=== PATIENT | male | born 1940 | race Caucasian/White ===

== ENCOUNTER 2019-07-28 15:21 | Inpatient (IN) | payer MEDICARE, OTHER ==
[~2019-07-28] VITALS: Ht 182.9 cm; Wt 104.3 kg
[2019-07-28 15:55] LABS: BASOPHILS ABSOLUTE AUTO 0.03 K/mm3 (0.00-0.23); BASOPHILS PERCENT AUTO 0 % (0-2); EOSINOPHILS ABSOLUTE AUTO 0.01 K/mm3 (0.00-0.68); EOSINOPHILS PERCENT AUTO 0 % (0-6); Hematocrit 47.7 % (37.0-53.0); Hemoglobin 14.8 g/dL (13.5-17.5); IMMATURE GRAN ABSOLUTE AUTO 0.03 K/mm3 (0.00-0.10); IMMATURE GRAN PERCENT AUTO 0 % (0-1); LYMPHOCYTES ABSOLUTE AUTO 1.49 K/mm3 (0.84-5.20); LYMPHOCYTES PERCENT AUTO 16 % (21-46); MONOCYTES ABSOLUTE AUTO 1.17 K/mm3 (0.16-1.47); MONOCYTES PERCENT AUTO 12 % (4-13); Mean Corpuscular HGB 30.9 pg (26.0-34.0); Mean Corpuscular Volume 100 fL (80-100); Mean Platelet Volume 11.9 fL (9.1-12.4); NEUTROPHILS ABSOLUTE AUTO 6.85 K/mm3 (1.96-9.15); NEUTROPHILS PERCENT AUTO 72 % (41-73); Platelet Count 212 K/mm3 (150-400); RDW Coefficient Variation 12.3 % (11.7-14.2); RDW Standard Deviation 45.8 fL (35.1-46.3); Red Blood Cell Count 4.79 M/mm3 (4.30-5.90); White Blood Cell Count 9.58 K/mm3 (4.00-11.30)
[2019-07-28 16:23] LABS: Alanine Aminotransfer (ALT/SGP 32 U/L (12-78); Albumin/Globulin Ratio 1.1 (0.8-1.8); Alk Phos 92 U/L (50-136); Anion Gap -1 mmol/L (6-16); Aspartate Aminotrans (AST/SGOT 27 U/L (12-37); Bilirubin, Total 0.3 mg/dL (0.1-1.0); Blood Urea Nitrogen 23 mg/dL (8-24); Bun/Creatinine Ratio 29.4 (12.0-20.0); CO2, Blood 38 mmol/L (21-32); Calcium, Blood 8.9 mg/dL (8.5-10.1); Chloride, Blood 97 mmol/L (98-108); Creatinine, Blood 0.78 mg/dL (0.60-1.20); Globulin, Blood 3.7 g/dL (2.2-4.0); Glomerular Filtration Rate >60 (60-); Glucose, Blood 191 mg/dL (70-99); Potassium, Blood 4.3 mmol/L (3.5-5.5); Sodium, Blood 134 mmol/L (136-145); Total Protein, Blood 7.7 g/dL (6.4-8.2); Troponin I <0.015 ng/mL (0.000-0.040)
[2019-07-28] MEDS ORDERED: Ventolin/Prove6.7 GM INH (16:46)
[2019-07-28] MEDS ORDERED: FURO20 PO (16:47)
[2019-07-28] MEDS ORDERED: MEMANTINE HCL5 MG PO (16:48)
[2019-07-28] MEDS ORDERED: Potassium Chlo20 ME1 PO (16:48)
[2019-07-28] MEDS ORDERED: TOUJEO SOL300 UNIT/1 SC (16:49)
[2019-07-28] MEDS ORDERED: Accupril40 MG PO (16:49)
[2019-07-28] MEDS ORDERED: NOVOLOG100 UNIT/1 SC (16:50)
[2019-07-28] MEDS ORDERED: METO100 PO (16:51)
[2019-07-28] MEDS ORDERED: Flonase 0.05% N16 GM (16:52)
[2019-07-28] MEDS ORDERED: Aspir 8181 MG PO (16:53)
[2019-07-28] MEDS ORDERED: DONEPEZIL HCL10 MG PO (17:45)
[2019-07-28] MEDS ORDERED: AMLO5 PO (17:45)
[2019-07-28] MEDS ORDERED: METF500 PO (17:46)
[2019-07-28] MEDS ORDERED: NOVOLOG FL100 UNIT/2 SC (17:48)
[2019-07-28 18:06] LABS: Adenovirus Not Detected (NOT DETECT); Bordetella pertussis Not Detected (NOT DETECT); Chlamydophila pneumoniae Not Detected (NOT DETECT); Coronavirus 229E Not Detected (NOT DETECT); Coronavirus HKU1 Not Detected (NOT DETECT); Coronavirus NL63 Not Detected (NOT DETECT); Coronavirus OC43 Not Detected (NOT DETECT); Human Metapneumovirus Not Detected (NOT DETECT); Human Rhinovirus/Enterovirus Not Detected (NOT DETECT); Influenza A/2009-H1 Not Detected (NOT DETECT); Influenza A/H1 Not Detected (NOT DETECT); Influenza A/H3 Not Detected (NOT DETECT); Influenza B Not Detected (NOT DETECT); Mycoplasma pneumoniae Not Detected (NOT DETECT); Parainfluenza Virus 1 Not Detected (NOT DETECT); Parainfluenza Virus 2 Not Detected (NOT DETECT); Parainfluenza Virus 3 Not Detected (NOT DETECT); Parainfluenza Virus 4 Not Detected (NOT DETECT); Respiratory Syncytial Virus Detected (NOT DETECT)
[2019-07-28 19:42] LABS: Base Excess Venous 9.7 mmol/L; Bicarbonate Venous 29.1 mmol/L (24.0-30.0); PCO2 Venous 94.2 mmHg (38-42); PO2 Venous 56.7 mmHg (38-42); pH Blood Venous 7.21 (7.34-7.37)
[2019-07-28 20:31] LABS: Source, Urine Catheter
[2019-07-28 20:34] LABS: Bilirubin, Urine Neg (Neg); Blood, Urine 2+ (Neg); Glucose Qualitative, Urine 3+ (Neg); Ketones, Urine Neg (Neg); Leukocyte Esterase, Urine Neg (Neg); Nitrite, Urine Neg (Neg); Protein, Urine 3+ (Neg); Specific Gravity, Urine 1.025 (1.003-1.022); Urobilinogen, Urine NORM (Normal)
[2019-07-28 20:39] LABS: Appearance, Urine Clear (Clear); Color, Urine Yellow (P-Yellow)
[2019-07-28 20:53] LABS: Amorphous Mod (0-Heavy); Bacteria Not Seen /hpf; Red Blood Cells, Urine 0-2 /hpf (0-2); Squamous Epithelial Cells Not Seen /hpf (Few); White Blood Cells, Urine Not Seen /hpf (0-5)
--- NOTE | 2019-07-29 00:23 | NUR ---
78 yr old male admitted to floor from the ED with Dx of Acute Respiratory Failure with hypoxia and hypercapnia. Placed on Droplet precautions for RSV - alert and oriented x 4. Oriented to cll light. RT at bedside and CPAP placed. Resps wheezy and congested. Meds given. Call light in reach. Granddaughter called and stated to call her at any time if needed.
[2019-07-29 04:56] LABS: BASOPHILS ABSOLUTE AUTO 0.02 K/mm3 (0.00-0.23); BASOPHILS PERCENT AUTO 0 % (0-2); EOSINOPHILS PERCENT AUTO 0 % (0-6); Hematocrit 45.7 % (37.0-53.0); Hemoglobin 14.4 g/dL (13.5-17.5); IMMATURE GRAN ABSOLUTE AUTO 0.05 K/mm3 (0.00-0.10); IMMATURE GRAN PERCENT AUTO 0 % (0-1); LYMPHOCYTES PERCENT AUTO 6 % (21-46); MONOCYTES ABSOLUTE AUTO 0.25 K/mm3 (0.16-1.47); MONOCYTES PERCENT AUTO 2 % (4-13); Mean Corpuscular HGB 31.2 pg (26.0-34.0); Mean Corpuscular HGB Conc 31.5 g/dL (31.5-36.5); Mean Corpuscular Volume 99 fL (80-100); Mean Platelet Volume 11.9 fL (9.1-12.4); NEUTROPHILS PERCENT AUTO 92 % (41-73); Platelet Count 181 K/mm3 (150-400); RDW Coefficient Variation 12.2 % (11.7-14.2); RDW Standard Deviation 44.3 fL (35.1-46.3); Red Blood Cell Count 4.62 M/mm3 (4.30-5.90); White Blood Cell Count 12.82 K/mm3 (4.00-11.30)
[2019-07-29 05:06] LABS: Anion Gap 2 mmol/L (6-16); Blood Urea Nitrogen 28 mg/dL (8-24); Bun/Creatinine Ratio 31.4 (12.0-20.0); CO2, Blood 37 mmol/L (21-32); Calcium, Blood 8.7 mg/dL (8.5-10.1); Chloride, Blood 99 mmol/L (98-108); Creatinine, Blood 0.89 mg/dL (0.60-1.20); Glomerular Filtration Rate >60 (60-); Glucose, Blood 219 mg/dL (70-99); Sodium, Blood 138 mmol/L (136-145)
--- NOTE | 2019-07-29 06:04 | NUR ---
PT HAS BEEN RESTING QUIETLY WITH FEW INTERRPTIONS SINCE CPAP CONNECTED TO PT THIS AM/ CALL LIGHT IN REACH.
--- NOTE | 2019-07-29 17:42 | NUR ---
SHIFT SUMMARY PATIENT DENIES PAIN, NAUSEA, AND SHORTNES OF BREATH. PATIENT DOES BECOME DYSPNIC WITH ACTIVITY BUT RECOVERS QUICKLY. PATIENT UP SBA TO BATHROOM. PATIENT UP IN RECLINER THIS AFTERNOON. BRENNAN PATENT AND DRAINING. PATIENT STILL HAS AUDIBLE WHEEZE. PATIENT STATED HE FEELS SOMEWHAT BETTER TODAY. CALL LIGHT IN REACH.
--- NOTE | 2019-07-30 04:24 | NUR ---
SHIFT SUMMARY PT IS INTERMITTENTLY PLEASANTLY CONFUSED. PLACED PT ON BIPAP THIS EVENING BUT PT DID NOT TOLERATE, ONLY LEAVING IT ON FOR APPROX A HALF HOUR. STATING THAT HE FELT LIKE HE COULD NOT BREATH WITH IT ON, EVEN AFTER PLACING HOME MASK ON PT WOULD NOT LEAVE ON. SWITCHED TO PT'S HOME CPAP AND PT TOLERATED THAT BETTER. PT IS FORGETFUL, HAD TO REEDUCATE PT MULTIPLE TIMES THROUGHOUT THE NIGHT THE REASONING FOR THE BIPAP, CONTINUOUS PULSE OX, ETC. O2 SATS REMAINED GREATER THAN 90% THROUGHOUT THE NIGHT. WITH 5 L WHILE ON NC AND 2 L BLEEDIN TO BIPAP/CPAP. BRENNAN CATHETER REMAINED IN PLACE, PATENT AND DRAINING. PT REPOSITIONS SELF IN BED, TURNING FROM SIDE TO SIDE. PT DID NOT SLEEP REALLY WELL BUT DID GET SEVERAL HOURS INTERMITTENTLY. NO COMPLAINTS OF PAIN. LUNG SOUNDS DIM WITH SOME WHEEZING. VITAL SIGNS STABLE. WILL CONTINUE TO MONITOR.
[2019-07-30 08:41] LABS: BASOPHILS ABSOLUTE AUTO 0.01 K/mm3 (0.00-0.23); BASOPHILS PERCENT AUTO 0 % (0-2); EOSINOPHILS PERCENT AUTO 0 % (0-6); Hematocrit 48.1 % (37.0-53.0); Hemoglobin 14.9 g/dL (13.5-17.5); IMMATURE GRAN ABSOLUTE AUTO 0.07 K/mm3 (0.00-0.10); IMMATURE GRAN PERCENT AUTO 1 % (0-1); LYMPHOCYTES ABSOLUTE AUTO 0.91 K/mm3 (0.84-5.20); LYMPHOCYTES PERCENT AUTO 6 % (21-46); MONOCYTES ABSOLUTE AUTO 0.67 K/mm3 (0.16-1.47); MONOCYTES PERCENT AUTO 5 % (4-13); Mean Corpuscular HGB 31.1 pg (26.0-34.0); Mean Corpuscular Volume 100 fL (80-100); Mean Platelet Volume 11.7 fL (9.1-12.4); NEUTROPHILS ABSOLUTE AUTO 12.92 K/mm3 (1.96-9.15); NEUTROPHILS PERCENT AUTO 89 % (41-73); Platelet Count 230 K/mm3 (150-400); RDW Coefficient Variation 12.3 % (11.7-14.2); RDW Standard Deviation 46.3 fL (35.1-46.3); Red Blood Cell Count 4.79 M/mm3 (4.30-5.90); White Blood Cell Count 14.58 K/mm3 (4.00-11.30)
[2019-07-30 08:57] LABS: Anion Gap 1 mmol/L (6-16); Blood Urea Nitrogen 35 mg/dL (8-24); Bun/Creatinine Ratio 38.5 (12.0-20.0); CO2, Blood 40 mmol/L (21-32); Calcium, Blood 9.1 mg/dL (8.5-10.1); Chloride, Blood 96 mmol/L (98-108); Creatinine, Blood 0.91 mg/dL (0.60-1.20); Glomerular Filtration Rate >60 (60-); Glucose, Blood 180 mg/dL (70-99); Potassium, Blood 4.5 mmol/L (3.5-5.5); Sodium, Blood 137 mmol/L (136-145)
--- NOTE | 2019-07-30 18:11 | NUR ---
SHIFT SUMMARY PATENT DENIES PAIN, NAUSEA, AND SHORTNESS OF BREATH THIS SHIFT. PATIENT UP IN CHAIR FOR MEALS. PATIENT STATES HE IS FEELING SOMEWHAT BETTER BUT IS STILL AUDIBLY WHEEZY AT TIMES. IV ACCESS WAS LOST THIS MORNING AND HAS NOT BEEN REGAINED DESPITE MULTIPLE ATTEMPTS. MIDLINE ACCESS MAY BE NEEDED. CHARGE NURSE INFORMED. BRENNAN TO BE REMOVED. CALL LIGHT IN REACH.
--- NOTE | 2019-07-30 22:41 | NUR ---
CHARGE NURSE PLACED IV IN PT RIGHT AC FOR MEDS. PERSONAL BIPAP IN USE - O2 SATS IN 90'S. DROPLET PRECAUTIONS MAINTAINED. CALL LIGHT IN REACH. WILL CONT TO MONITOR.
[2019-07-31 04:41] LABS: Base Excess Venous 12.2 mmol/L; Bicarbonate Venous 33.2 mmol/L (24.0-30.0); PCO2 Venous 62.7 mmHg (38-42); PO2 Venous 150 mmHg (38-42); pH Blood Venous 7.38 (7.34-7.37)
--- NOTE | 2019-07-31 05:04 | NUR ---
HAS BEEN RESTING QUIETLY WITH FEW INTERRUPTIONS, USING C PAP FROM HOME. O2 SATS IN THE 90'S WHILE IN USE. WAS UP TO THE BR X 2, EASILY SOB WHEN UP. CURRENTLY RESTING QUIETLY. CALL LIGHT IN REACH.
[2019-07-31 05:28] LABS: Anion Gap 4 mmol/L (6-16); Blood Urea Nitrogen 40 mg/dL (8-24); Bun/Creatinine Ratio 41.9 (12.0-20.0); CO2, Blood 36 mmol/L (21-32); Calcium, Blood 9.1 mg/dL (8.5-10.1); Chloride, Blood 99 mmol/L (98-108); Creatinine, Blood 0.96 mg/dL (0.60-1.20); Glomerular Filtration Rate >60 (60-); Glucose, Blood 103 mg/dL (70-99); Potassium, Blood 5.4 mmol/L (3.5-5.5); Sodium, Blood 139 mmol/L (136-145)
--- NOTE | 2019-07-31 19:00 | NUR ---
PT. VERY PLEASANT AND TODAY, NEEDS BED ALARM TO REMIND HIM TO CALL FOR HELP BEFORE GETTING UP. WILL PROBAVBLY NEED TO GO TO A HIGHER LEVEL OF CARE ON DISCHARGE
--- NOTE | 2019-07-31 21:23 | NUR ---
PT HAS INCREASED CONFUSION. NURSE NOTIFIED
[2019-08-01 05:09] LABS: BASOPHILS ABSOLUTE AUTO 0.02 K/mm3 (0.00-0.23); BASOPHILS PERCENT AUTO 0 % (0-2); EOSINOPHILS PERCENT AUTO 0 % (0-6); Hematocrit 49.4 % (37.0-53.0); Hemoglobin 15.3 g/dL (13.5-17.5); IMMATURE GRAN ABSOLUTE AUTO 0.08 K/mm3 (0.00-0.10); IMMATURE GRAN PERCENT AUTO 1 % (0-1); LYMPHOCYTES ABSOLUTE AUTO 1.05 K/mm3 (0.84-5.20); LYMPHOCYTES PERCENT AUTO 8 % (21-46); MONOCYTES ABSOLUTE AUTO 0.81 K/mm3 (0.16-1.47); MONOCYTES PERCENT AUTO 6 % (4-13); Mean Corpuscular HGB 31.4 pg (26.0-34.0); Mean Corpuscular Volume 101 fL (80-100); Mean Platelet Volume 11.6 fL (9.1-12.4); NEUTROPHILS ABSOLUTE AUTO 11.08 K/mm3 (1.96-9.15); NEUTROPHILS PERCENT AUTO 85 % (41-73); Platelet Count 218 K/mm3 (150-400); RDW Coefficient Variation 12.2 % (11.7-14.2); RDW Standard Deviation 46.3 fL (35.1-46.3); Red Blood Cell Count 4.88 M/mm3 (4.30-5.90); White Blood Cell Count 13.04 K/mm3 (4.00-11.30)
[2019-08-01 05:26] LABS: Alanine Aminotransfer (ALT/SGP 44 U/L (12-78); Albumin, Blood 3.4 g/dL (3.4-5.0); Alk Phos 71 U/L (50-136); Anion Gap 2 mmol/L (6-16); Aspartate Aminotrans (AST/SGOT 25 U/L (12-37); Bilirubin, Total 0.2 mg/dL (0.1-1.0); Blood Urea Nitrogen 42 mg/dL (8-24); CO2, Blood 40 mmol/L (21-32); Calcium, Blood 9.1 mg/dL (8.5-10.1); Chloride, Blood 98 mmol/L (98-108); Creatinine, Blood 1.05 mg/dL (0.60-1.20); Globulin, Blood 3.5 g/dL (2.2-4.0); Glomerular Filtration Rate >60 (60-); Glucose, Blood 128 mg/dL (70-99); Magnesium, Blood 2.6 mg/dL (1.6-2.4); Phosphorus, Blood 3.5 mg/dL (2.5-4.9); Potassium, Blood 5.4 mmol/L (3.5-5.5); Sodium, Blood 140 mmol/L (136-145); Total Protein, Blood 6.9 g/dL (6.4-8.2)
--- NOTE | 2019-08-01 07:20 | NUR ---
SHIFT SUMMARY PATIENT HAVING SOME CONFUSION REGARDING MEDICATIONS AND HIS OXYGEN. HE HAS BEEN VERY PLEASANT TO WORK WITH OVER NIGHT. IV PATENT AND FLUSHED. BED IN LOWEST POSITION WITH WHEELS LOCKED AND ALARM ON. CALL LIGHT AND BELONGINGS WITHIN REACH. REPORT GIVEN TO ONCOMING RN.
--- NOTE | 2019-08-01 19:00 | NUR ---
PT. LAYING BED AFTER EATING DINNER. PT. STILL FORGETFUL, DOES NOT REMEBER WHAT HE'S TOLD. DOES NOT USE CALL LIGHT BEFORE GETTING UP SO BED ALARM IS ON. PT. HAD 2 LARGE BOWEL MOVEMENTS TODAY. THINKING ABOUT SENDING PATIENT TO REHAB UPON DISCHARGE.
--- NOTE | 2019-08-01 19:10 | NUR ---
1910-AMADOU IS ALERT ORIENTED TO SELF AND PLACE BUT IS VERY FORGETFUL. CONTINUES TO REPEAT SELF AND QUESITONS, DOES NOT REMEMBER WHAT HE WAS JUST TOLD 5 MINUTES LATER. FORGETS WHAT THINGS ARE SUCH HIS FLUTTER VALVE AND IV. FORGETS TO USE THE FLUTTER VALVE. HE ASK WHEN HE CAN GO HOME. DISCUSSED WIHT HIM CONCERN FOR HIM LIVING BY HIMSELF AND BEING ABLE TO TAKE CARE OF HIMSELF. DISCUSSED CAREGIVERS HE IS NOT SURE IF HE CAN AFFORD THEM BUT UNDERSTAND HE MIGHT NEED THEM NOW. LUNG SOUNDS ARE DIMINISHED WIHT EXPIRTORY WHEEZES. COUGH IS PRODUCTIVE, WITH THICK YELLOW SPUTUM. HE DOES WEAR CPAP AT NIGHT. BED ALARM IS ON AND CALL LIGHT IS IN REACH. WILL CONTINUE TO MONITOR.
[2019-08-02 04:57] LABS: BASOPHILS ABSOLUTE AUTO 0.02 K/mm3 (0.00-0.23); BASOPHILS PERCENT AUTO 0 % (0-2); EOSINOPHILS PERCENT AUTO 0 % (0-6); Hematocrit 47.8 % (37.0-53.0); Hemoglobin 14.8 g/dL (13.5-17.5); IMMATURE GRAN ABSOLUTE AUTO 0.09 K/mm3 (0.00-0.10); IMMATURE GRAN PERCENT AUTO 1 % (0-1); LYMPHOCYTES ABSOLUTE AUTO 1.14 K/mm3 (0.84-5.20); LYMPHOCYTES PERCENT AUTO 11 % (21-46); MONOCYTES ABSOLUTE AUTO 0.55 K/mm3 (0.16-1.47); MONOCYTES PERCENT AUTO 5 % (4-13); Mean Corpuscular HGB 30.9 pg (26.0-34.0); Mean Corpuscular Volume 100 fL (80-100); Mean Platelet Volume 11.6 fL (9.1-12.4); NEUTROPHILS ABSOLUTE AUTO 8.75 K/mm3 (1.96-9.15); NEUTROPHILS PERCENT AUTO 83 % (41-73); Platelet Count 219 K/mm3 (150-400); RDW Coefficient Variation 12.2 % (11.7-14.2); RDW Standard Deviation 45.4 fL (35.1-46.3); Red Blood Cell Count 4.79 M/mm3 (4.30-5.90); White Blood Cell Count 10.55 K/mm3 (4.00-11.30)
[2019-08-02 05:14] LABS: Anion Gap 2 mmol/L (6-16); Blood Urea Nitrogen 46 mg/dL (8-24); CO2, Blood 41 mmol/L (21-32); Calcium, Blood 9.2 mg/dL (8.5-10.1); Chloride, Blood 96 mmol/L (98-108); Creatinine, Blood 1.21 mg/dL (0.60-1.20); Glomerular Filtration Rate >60 (60-); Glucose, Blood 92 mg/dL (70-99); Potassium, Blood 4.9 mmol/L (3.5-5.5); Sodium, Blood 139 mmol/L (136-145)
--- NOTE | 2019-08-02 06:11 | NUR ---
SHIFT SUMMARY: AMADOU HAS HAD A GOOD NIGHT. HE STILL HAD SEVERAL PERIODS OF FORGETFULNESS, LIKE NOT USING HIS CALL LIGHT. HE DID SLEEP WELL ON THE CPAP, SLEEPING MOST OF THE NIGHT. LUNG SOUNDS ARE STILL HAVE EXPIRTORY WHEEZES WITH COUGH BEING PRODUCTIVE OF SMALL AMOUNTS OF YELLOW SPUTUM. VS WERE STABLE. IV PATENT AND FLUSHED WELL. SATS REMAINED IN THE 90'S ON CPAP AND 2 LITERS OF O2. NO FURTHER CHANGES TO REPORT THIS SHIFT. BED ALARM IS ON AND CALL LIGHT IN REACH.
--- NOTE | 2019-08-02 18:26 | NUR ---
PT. SITTING IN BED. PT. APPEARS TO BE STONGER TODAY THAN YESTERDAY. NOT MUCH CHANGE IN HIS MENTATION, STILL ASKING SAME QUESTIONS ABOUT HIS TREATMENT AND MEDS YESTERDAY. DOES NOT RETAIN WHAT HE IS TOLD. REFERS TO [facility]NS[facility] LIQUID MEDICINE, DOES NOT KNOW THERE NAME SUCH [facility] CALLS IT THE ONE THAT LASTS A LONG TIME. SAYS HE TAKES ANOTHER LIQUID DIABETES MEDICINE TOO, GIVES THE AMOUNT BUT NOT THE TIME, SAYS HE TAKES 8,8,AND 12. EVEN WHEN REMINDING PT. WHAT THEY ARE HE DOES NOT RETAIN IT. I FEEL HES A VERY HIGH RISK OF TAKING HIS OWN MEDS.
--- NOTE | 2019-08-03 04:46 | NUR ---
SHIFT SUMMARY PT HAS HAD NO ACUTE CHANGES THIS SHIFT, NO C/O ANY KIND, PT HAS BEEN PLEASANT & COOPERATIVE W/CARE, IS FORGETFUL AT TIMES BUT HAS CALLED APPROPIATELY T/O SHIFT, BEDRESTING AT THIS TIME, CALL LIGHT IN REACH, WILL CONT TO MONITOR UNTIL REPORT GIVEN TO DAY RN.
[2019-08-03] MEDS ORDERED: GUAI600T33 PO (15:45)
[2019-08-03] MEDS ORDERED: Prednisone10 MG PO (15:46)
--- NOTE | 2019-08-03 16:00 | NUR ---
PT DCD HOME WITH DAUGHTER AND HOME HEALTH. DC PACKET REVIEWED WITH PT AND ALL QUESTIONS ANSWERED. MED REC FAXED TO PHARMACY OF CHOICE. [facility] WILL CALL AND SCHEDULE F/U. IV REMOVED WITH NO ISSUE. ALL PERSONAL BELONGINGS SENT WITH PT.
== END 2019-08-03 16:15 | disposition home health service (06) | DRG 189 ==
LOC: ER 15:21 → MEDS 22:31
PROVIDERS: Emergency Medicine; Hospitalist; Internal Medicine Endocrinology, Diabetes & Metabolism; ADMIT Internal Medicine
DX: J96.21 Acute and chronic respiratory failure with hypoxia (principal); E66.2 Morbid (severe) obesity with alveolar hypoventilation; I50.32 Chronic diastolic (congestive) heart failure; G47.33 Obstructive sleep apnea (adult) (pediatric); J96.22 Acute and chronic respiratory failure with hypercapnia; G30.1 Alzheimer's disease with late onset; F02.80 Dementia in other diseases classified elsewhere, unspecified severity, without behavioral disturbance, psychotic disturbance, mood disturbance, and anxiety; J20.5 Acute bronchitis due to respiratory syncytial virus; B97.4 Respiratory syncytial virus as the cause of diseases classified elsewhere; E11.65 Type 2 diabetes mellitus with hyperglycemia; Z79.4 Long term (current) use of insulin; Z68.31 Body mass index [BMI] 31.0-31.9, adult; Z99.81 Dependence on supplemental oxygen; R26.0 Ataxic gait; Z85.46 Personal history of malignant neoplasm of prostate; I11.0 Hypertensive heart disease with heart failure
CPT/HCPCS: 0099U; 36415; 51702; 71045; 71250; 80048; 80053; 81001; 82803; 82947; 83605; 83735; 83880; 84100; 84145; 84484; 85025; 87040; 93005; 93010; 94640; 94660; 94667; 94668; 94762; 96374-59; 97110; 97116; 97162; 97166; 97530; 97535; 99285-25; J1650; J2920; J2930; J7512

== ENCOUNTER → 2021-10-16 | Outpatient (CLI) | payer MEDICARE, OTHER ==
[~2021-10-16] MED LIST: AMLO5 PO; Accupril40 MG PO; Aspir 8181 MG PO; DONEPEZIL HCL10 MG PO; FURO20 PO; Flonase 0.05% N16 GM; GUAI600T33 PO; MEMANTINE HCL5 MG PO; METF500 PO; METO100 PO; NOVOLOG FL100 UNIT/2 SC; NOVOLOG100 UNIT/1 SC; Potassium Chlo20 ME1 PO; Prednisone10 MG PO; TOUJEO SOL300 UNIT/1 SC; Ventolin/Prove6.7 GM INH
[2021-10-16 14:59] LABS: Adenovirus F 40/41 Not Detected (NOT DETECT); Astrovirus Not Detected (NOT DETECT); Campylobacter Sp Not Detected (NOT DETECT); Cryptosporidium Not Detected (NOT DETECT); Cyclospora Cayetanensis Not Detected (NOT DETECT); E. Coli O157 Not Detected (NOT DETECT); Entamoeba Histolytica Not Detected (NOT DETECT); Enteroaggregative E. coli-EAEC Not Detected (NOT DETECT); Enteropathogenic E. coli-EPEC Not Detected (NOT DETECT); Enterotoxigenic E. coli-ETEC Not Detected (NOT DETECT); Giardia Lamblia Not Detected (NOT DETECT); Norovirus GI/GII Not Detected (NOT DETECT); Plesiomonas Shigelloides Not Detected (NOT DETECT); Rotavirus A Not Detected (NOT DETECT); Salmonella Sp Not Detected (NOT DETECT); Sapovirus Not Detected (NOT DETECT); Shiga Toxin-prod E. coli-STEC Not Detected (NOT DETECT); Shigella/Enteroin E. coli-EIEC Not Detected (NOT DETECT); Vibrio Cholerae Not Detected (NOT DETECT); Vibrio Sp Not Detected (NOT DETECT); Yersinia Enterocolitica Not Detected (NOT DETECT)
== END | disposition home or self-care (01) ==
LOC: LAB SHORT 11:00
PROVIDERS: Physician Assistant
DX: R19.7 Diarrhea, unspecified (principal)
CPT/HCPCS: 87507

== ENCOUNTER → 2022-04-29 | Outpatient (CLI) | payer MEDICARE, OTHER ==
[2022-04-29 15:11] LABS: BASOPHILS ABSOLUTE AUTO 0.06 K/mm3 (0.00-0.23); BASOPHILS PERCENT AUTO 1 % (0-2); EOSINOPHILS ABSOLUTE AUTO 0.08 K/mm3 (0.00-0.68); EOSINOPHILS PERCENT AUTO 1 % (0-6); Hematocrit 46.7 % (37.0-53.0); IMMATURE GRAN ABSOLUTE AUTO 0.03 K/mm3 (0.00-0.10); IMMATURE GRAN PERCENT AUTO 0 % (0-1); LYMPHOCYTES ABSOLUTE AUTO 1.71 K/mm3 (0.84-5.20); LYMPHOCYTES PERCENT AUTO 18 % (21-46); MONOCYTES ABSOLUTE AUTO 0.87 K/mm3 (0.16-1.47); MONOCYTES PERCENT AUTO 9 % (4-13); Mean Corpuscular HGB 30.8 pg (26.0-34.0); Mean Corpuscular HGB Conc 32.1 g/dL (31.5-36.5); Mean Corpuscular Volume 96 fL (80-100); Mean Platelet Volume 12.5 fL (9.1-12.4); NEUTROPHILS ABSOLUTE AUTO 6.99 K/mm3 (1.96-9.15); NEUTROPHILS PERCENT AUTO 72 % (41-73); Platelet Count 201 K/mm3 (150-400); RDW Coefficient Variation 13.1 % (11.7-14.2); RDW Standard Deviation 45.9 fL (35.1-46.3); Red Blood Cell Count 4.87 M/mm3 (4.30-5.90); White Blood Cell Count 9.74 K/mm3 (4.00-11.30)
[2022-04-29 15:28] LABS: Albumin/Globulin Ratio 1.2 (0.8-1.8); Bilirubin, Total 0.2 mg/dL (0.1-1.0); Bun/Creatinine Ratio 16.8 (12.0-20.0); Calcium, Blood 9.4 mg/dL (8.5-10.1); Creatinine, Blood 1.13 mg/dL (0.60-1.20); Globulin, Blood 3.3 g/dL (2.2-4.0); Potassium, Blood 4.6 mmol/L (3.5-5.5); Total Protein, Blood 7.3 g/dL (6.4-8.2)
== END | disposition home or self-care (01) ==
LOC: LAB SHORT 15:02
PROVIDERS: Physician Assistant
DX: Z12.5 Encounter for screening for malignant neoplasm of prostate (principal); E11.42 Type 2 diabetes mellitus with diabetic polyneuropathy; I10 Essential (primary) hypertension
CPT/HCPCS: 80053; 83036; 85025; G0103

== ENCOUNTER 2023-06-15 22:03 | Emergency (ER) | payer MEDICARE, OTHER ==
[~2023-06-15] VITALS: Ht 180.3 cm; Wt 124.3 kg
[2023-06-15 23:23] LABS: BASOPHILS ABSOLUTE AUTO 0.08 K/mm3 (0.00-0.23); BASOPHILS PERCENT AUTO 1 % (0-2); EOSINOPHILS ABSOLUTE AUTO 0.07 K/mm3 (0.00-0.68); EOSINOPHILS PERCENT AUTO 1 % (0-6); Hematocrit 44.4 % (37.0-53.0); Hemoglobin 14.4 g/dL (13.5-17.5); IMMATURE GRAN ABSOLUTE AUTO 0.07 K/mm3 (0.00-0.10); IMMATURE GRAN PERCENT AUTO 1 % (0-1); LYMPHOCYTES ABSOLUTE AUTO 1.31 K/mm3 (0.84-5.20); LYMPHOCYTES PERCENT AUTO 11 % (21-46); MONOCYTES ABSOLUTE AUTO 1.36 K/mm3 (0.16-1.47); MONOCYTES PERCENT AUTO 11 % (4-13); Mean Corpuscular HGB 30.8 pg (26.0-34.0); Mean Corpuscular HGB Conc 32.4 g/dL (31.5-36.5); Mean Corpuscular Volume 95 fL (80-100); Mean Platelet Volume 12.1 fL (9.1-12.4); NEUTROPHILS ABSOLUTE AUTO 9.36 K/mm3 (1.96-9.15); NEUTROPHILS PERCENT AUTO 76 % (41-73); Platelet Count 225 K/mm3 (150-400); RDW Coefficient Variation 12.6 % (11.7-14.2); RDW Standard Deviation 44.2 fL (35.1-46.3); Red Blood Cell Count 4.67 M/mm3 (4.30-5.90); White Blood Cell Count 12.25 K/mm3 (4.00-11.30)
[2023-06-16] LABS: Albumin, Blood 3.8 g/dL (3.4-5.0); Bilirubin, Total 0.3 mg/dL (0.1-1.0); Bun/Creatinine Ratio 18.3 (12.0-20.0); Calcium, Blood 9.2 mg/dL (8.5-10.1); Creatinine, Blood 0.93 mg/dL (0.60-1.20); Magnesium, Blood 2.1 mg/dL (1.6-2.4); Phosphorus, Blood 3.1 mg/dL (2.5-4.9); Potassium, Blood 4.7 mmol/L (3.5-5.5); Thyroid Stimulating Hormone 1.03 uIU/mL (0.360-4.800); Total Protein, Blood 7.8 g/dL (6.4-8.2)
[2023-06-16 00:38] LABS: Influenza A, PCR NEGATIVE (NEGATIVE); Influenza B, PCR NEGATIVE (NEGATIVE); Resp Syncytial Virus, PCR NEGATIVE (NEGATIVE)
[2023-06-16 00:39] LABS: SARS-Cov-2 (COVID-19) PCR, MMC POSITIVE (NEGATIVE)
[2023-06-16 02:19] LABS: Source, Urine Clean Catch
[2023-06-16 02:25] LABS: Bilirubin, Urine Neg (Neg); Blood, Urine 3+ (Neg); Glucose Qualitative, Urine 3+ (Neg); Ketones, Urine 1+ (Neg); Leukocyte Esterase, Urine Neg (Neg); Nitrite, Urine Neg (Neg); Protein, Urine 3+ (Neg); Specific Gravity, Urine 1.025 (1.003-1.022); Urobilinogen, Urine NORM (Normal)
[2023-06-16 02:38] LABS: Appearance, Urine Clear (Clear); Color, Urine Yellow (P-Yellow)
[2023-06-16 02:40] LABS: Bacteria Few /hpf; Red Blood Cells, Urine 0-2 /hpf (0-2); Squamous Epithelial Cells Few /hpf (Few); White Blood Cells, Urine 0-2 /hpf (0-5)
[2023-06-16] MEDS ORDERED: ACET500 PO (03:25)
[2023-06-16 04:15] VITALS: BP 146/55
== END 2023-06-16 04:16 | disposition home or self-care (01) ==
LOC: ER 22:03
PROVIDERS: Emergency Medicine
DX: U07.1 COVID-19 (principal); I10 Essential (primary) hypertension; E11.9 Type 2 diabetes mellitus without complications; Z79.899 Other long term (current) drug therapy; Z79.4 Long term (current) use of insulin; Z79.82 Long term (current) use of aspirin; Z79.84 Long term (current) use of oral hypoglycemic drugs
CPT/HCPCS: 0241U; 80053; 81001; 83735; 83880; 84100; 84443; 85025; 93005; 93010; 96360; 99285-25; J7030

== ENCOUNTER → 2024-12-15 | Outpatient (CLI) | payer MEDICARE, OTHER ==
[~2024-12-15] MED LIST changes: +ACET500 PO
[2024-12-15 16:07] LABS: Creatinine, Urine Random 54.8 mg/dL (27.00-270.00); Microalb/Creat Ratio UR, Rand 52.737 mg/g (0.000-30.000); Microalbumin, Random Urine 28.9 mg/L (0.000-20.000)
== END ==
LOC: LAB 07:00 → LAB SHORT 07:00
PROVIDERS: Physician Assistant
DX: E11.42 Type 2 diabetes mellitus with diabetic polyneuropathy (principal)
CPT/HCPCS: 82043; 82570